=== PATIENT | female | born 1955 | race Caucasian/White ===

== ENCOUNTER → 2019-12-02 | Outpatient (CLI) | payer MEDICARE ==
--- NOTE | 2019-12-02 23:02 | REP ---
MAXILLOFACIAL CT STUDY WITHOUT CONTRAST: HISTORY: Chronic pansinusitis. CT FINDINGS: Digital spool maker radiographs are unremarkable. The frontal sinuses are clear. There is no evidence of ethmoid sinusitis. Sphenoid air cells are clear. There is a 1 cm mucous retention cyst in the floor the left maxillary sinus anteriorly. There is another smaller mucous retention cyst on the medial wall of the left maxillary sinus. The maxillary sinuses are otherwise clear. The ostiomeatal complexes are patent. Nasal turbinate soft tissues are unremarkable and symmetric. There is a mild leftward nasal septal beak. Mastoid aeration is normal and symmetric. Middle ear cavities are fully aerated. There is an un-errupted left maxillary tooth, which appears to be a canine tooth. No intraorbital abnormality or intracranial abnormality is appreciated. IMPRESSION: Small mucous retention cysts in the left maxillary sinus. Otherwise, negative. Electronically Signed by Bruno Wright MD 12/03/2019 11:24 A
== END ==
LOC: M RAD 15:10
PROVIDERS: ATTEND Otolaryngology
DX: J32.4 Chronic pansinusitis (principal)

== ENCOUNTER → 2021-12-01 | Outpatient (CLI) | payer MEDICARE | LOC: M WHC 12:48 | PROVIDERS: ATTEND Internal Medicine | DX: Z12.31 Encounter for screening mammogram for malignant neoplasm of breast (principal); Z13.820 Encounter for screening for osteoporosis; M81.0 Age-related osteoporosis without current pathological fracture ==

== ENCOUNTER → 2022-09-05 | Outpatient (CLI) | payer MEDICARE ==
[~2022-09-05] MED LIST: ATOR1TAB19 PO; CALCCAP4 PO; LOSA100T45 PO; RA T500C2 PO; RALO1TAB PO; VITA100093 PO; [UNRECOGNIZED DRUG - OTHER] PO
== END ==
LOC: M LABSMTC 10:21
PROVIDERS: ATTEND Anesthesiology
DX: Z01.812 Encounter for preprocedural laboratory examination (principal); Z11.52 Encounter for screening for COVID-19

== ENCOUNTER 2022-09-08 08:17 | Day surgery (SDC) | payer MEDICARE ==
[~2022-09-08] VITALS: Ht 165.1 cm; Wt 71.1 kg
[~2022-09-08 08:17] MED LIST changes: +LIDOCAINE 2% 100MG/5ML SDV (FOR ANES.) As Ordered ONE; +NS 1,000 ML IV ONE; +propofoL 200 MG/20 ML VIAL As Ordered ONE
[2022-09-08 10:08] VITALS: BP 164/94
== END 2022-09-08 10:21 | disposition home or self-care (01) ==
LOC: M OPP 08:17
PROVIDERS: ATTEND Internal Medicine Gastroenterology
DX: Z80.0 Family history of malignant neoplasm of digestive organs (principal); D12.2 Benign neoplasm of ascending colon; K57.30 Diverticulosis of large intestine without perforation or abscess without bleeding; K64.8 Other hemorrhoids; I10 Essential (primary) hypertension; E78.00 Pure hypercholesterolemia, unspecified; M81.0 Age-related osteoporosis without current pathological fracture; Z79.02 Long term (current) use of antithrombotics/antiplatelets; Z79.899 Other long term (current) drug therapy; Z79.810 Long term (current) use of selective estrogen receptor modulators (SERMs); Z80.42 Family history of malignant neoplasm of prostate

== ENCOUNTER → 2022-12-12 | Outpatient (CLI) | payer MEDICARE ==
[~2022-12-12] MED LIST changes: -LIDOCAINE 2% 100MG/5ML SDV (FOR ANES.) As Ordered ONE; -LOSA100T45 PO; +LOSA100T46 PO; -NS 1,000 ML IV ONE; -propofoL 200 MG/20 ML VIAL As Ordered ONE
== END ==
LOC: M WHC 08:11
PROVIDERS: ATTEND Internal Medicine
DX: Z12.31 Encounter for screening mammogram for malignant neoplasm of breast (principal)

== ENCOUNTER → 2024-03-14 | Outpatient (CLI) | payer MEDICARE | LOC: M WHC 11:02 | PROVIDERS: ATTEND Internal Medicine | DX: Z12.31 Encounter for screening mammogram for malignant neoplasm of breast (principal); M81.0 Age-related osteoporosis without current pathological fracture ==

== ENCOUNTER → 2025-04-17 | Outpatient (CLI) | payer MEDICARE ==
[~2025-04-17] MED LIST changes: -RA T500C2 PO; +TURM500C10 PO
== END ==
LOC: M WHC 11:58
PROVIDERS: ATTEND Internal Medicine
DX: Z12.31 Encounter for screening mammogram for malignant neoplasm of breast (principal); R92.323 Mammographic fibroglandular density, bilateral breasts

== ENCOUNTER 2025-05-21 09:53 | Outpatient (RCR) | payer MEDICARE | END 2025-05-23 | LOC: M PT 09:53 | PROVIDERS: ATTEND Internal Medicine | DX: N81.89 Other female genital prolapse (principal) ==

== ENCOUNTER 2025-06-17 09:07 | Outpatient (RCR) | payer MEDICARE | END 2025-06-22 | LOC: M PT 09:07 | PROVIDERS: ATTEND Internal Medicine | DX: N81.89 Other female genital prolapse (principal) ==

== ENCOUNTER 2025-07-03 08:22 | Outpatient (RCR) | payer MEDICARE | END 2025-07-23 | LOC: M PT 08:22 | PROVIDERS: ATTEND Internal Medicine | DX: N81.89 Other female genital prolapse (principal) ==